=== PATIENT | female | born 1970 | race Caucasian/White ===

== ENCOUNTER 2016-07-18 05:55 | Day surgery (SDC) | payer OTHER ==
[~2016-07-18] VITALS: Ht 170.2 cm; Wt 75.0 kg
[2016-07-18] VITALS (27 sets, daily range): BP systolic 86–112; BP diastolic 41–73; PULSE 56–82; RESP 8–24; O2SAT 90–100
[2016-07-18] MEDS: Lactated Ringer's 1,000 ML IV SCH ×6 (05:00→14:33)
[~2016-07-18 05:55] MED LIST: BRIM30GE2 TP
[2016-07-18] MEDS ORDERED: Ondansetron 2 mg/mL 2 mL Inj ONE (05:56)
[2016-07-18] MEDS ORDERED: Neostigmine 1 mg/mL 5 mL Inj ONE (05:56)
[2016-07-18] MEDS ORDERED: Morphine PF 1 mg/mL 10 mL Inj ONE (05:56)
[2016-07-18] MEDS ORDERED: Dexamethasone 4 mg/mL Inj ONE (05:56)
[2016-07-18] MEDS ORDERED: Propofol 10,000 mCg/mL 20 mL Inj ONE (05:56)
[2016-07-18] MEDS ORDERED: Bupiv-Spinal 0.75%/Dex 8.25% 2 mL Inj ONE (05:56)
[2016-07-18] MEDS ORDERED: Glycopyrrolate 0.2 mg/mL 5 mL Inj ONE (05:56)
[2016-07-18] MEDS ORDERED: fentaNYL-PF 50 mCg/mL 2 mL Inj ONE (05:56)
[2016-07-18] MEDS ORDERED: Rocuronium 10 mg/mL 5 mL Inj ONE (05:56)
[2016-07-18] MEDS ORDERED: CeFAZolin Inj 2 GM in IV Premix 1 EACH IV ONE (06:00)
[2016-07-18] MEDS ORDERED: CeFAZolin 2 Gm/50 mL D5W Duplex Bag IV ONE (06:09)
[2016-07-18 06:36] LABS: BASOPHILS % (AUTO) 0.2 % (0-3); EOSINOPHILS % (AUTO) 0.3 % (0-5); MONOCYTES % (AUTO) 7.2 % (4-12); Mean Corpuscular Hemoglobin 32.3 pg (27.0-35.0); Mean Corpuscular Volume 96.2 fL (81-100); Platelet Count 258 bil/L (150-400)
[2016-07-18] MEDS ORDERED: Bupivacaine-MPF 0.25%/EPI 30 mL Inj INJ ONE (07:30)
[2016-07-18] MEDS ORDERED: Gentamicin 40 mg/mL 2 mL Inj IRRIGATION ONE (07:30)
[2016-07-18] MEDS ORDERED: Vasopressin 20 Unit/mL Inj IM ONE (07:30)
[2016-07-18] MEDS ORDERED: hydrOXYzine Inj 25 MG/1 mL SDV IM PRN (08:10)
[2016-07-18] MEDS ORDERED: Phenylephrine 10,000 mCg/mL Inj IVPUSH PRN (08:10)
[2016-07-18] MEDS ORDERED: Labetalol 5 mg/mL 4 mL Inj IV PRN (08:10)
[2016-07-18] MEDS ORDERED: EPHEDrine Sulfate 50 mg/mL Inj IM PRN (08:10)
[2016-07-18] MEDS ORDERED: fentaNYL-PF 50 mCg/mL 2 mL Inj IVPUSH PRN (08:10)
[2016-07-18] MEDS ORDERED: MetoCLOpramide 5 mg/mL 2 mL Inj IVPUSH PRN ×2 (08:10→08:15)
[2016-07-18] MEDS ORDERED: Atropine 0.4 mg/mL Inj IVPUSH PRN (08:10)
[2016-07-18] MEDS ORDERED: HYDROmorphone 1 mg/mL Inj IVPUSH PRN (08:10)
[2016-07-18] MEDS ORDERED: hydrALAZINE 20 mg/mL Inj IVPUSH PRN (08:10)
[2016-07-18] MEDS ORDERED: Lactated Ringer's 500 ML IV PRN (08:10)
[2016-07-18] MEDS ORDERED: Lactated Ringer's 1,000 ML IV SCH (08:10)
[2016-07-18] MEDS ORDERED: EPHEDrine Sulfate 50 mg/mL Inj IVPUSH PRN ×2 (08:10→08:15)
[2016-07-18] MEDS ORDERED: Ondansetron 2 mg/mL 2 mL Inj IVPUSH PRN ×3 (08:10→12:25)
--- NOTE | 2016-07-18 08:10 | PCM.HPANE ---
Patient Data Surgeon Admitting Provider: Attending Provider:Jeff Lucero MD Primary Care Physician:Shauna Resendiz MD Other Provider:Lonny Chamberlain Anesthesia Reason for Visit Pelvic Floor Relaxation Ht/WT & BMI Height (Feet): 5 Height (Inches): 7 Weight (Kilograms): 66.7 Body Mass Index 23.00 Allergies Coded Allergies: No Known Allergies (Verified Allergy, Unknown, 04/22/04) Past Anesthesia History Anesthesia History: Denies:: Abnormal Airway, Anesthesia Reactions (takes long time to wake up), Difficult Intubation, Fam Anesthesia Reaction Diabetes History Hx Diabetes?: No MRSA MRSA: No Medications Hypertension Medication: No Home Meds Incl Beta Ranjana: No Reported Medications Brimonidine Tartrate (Mirvaso)0.33 % Gel.w.pump30 Gm TP DAILY 07/16/16 History History of ENT Problems?: No HEENT History: Positive for:: Sinus Problem (taking flonase ) Denies:: Abnormal Airway Cataracts Difficult Intubation Dysphagia Glaucoma Hearing Problem TMJ Hx of Heart Problems?: No Cardiovascular History: Denies:: AICD Atrial Fibrillation Chest Pain Edema Heart Murmur Hypertension Irregular Heartbeat Pacemaker Peripheral Vascular Hx of Respiratory Problem?: No Respiratory History: Denies:: Asthma COPD Emphysema Oxygen Administration Pneumonia Tuberculosis Use of C-PAP Machine Use of Inhalers / NEBS Hx Neurologic Problems?: No Neurological History: Denies:: CVA Dementia Dizziness Headaches Multiple Sclerosis Parkinson's Disease Seizures TIA Hx of GI Problems?: No Gastrointestinal History: Denies:: Cirrhosis Gall Bladder Disease Gastroesphageal Reflux Gastrointestinal Bleeding Heartburn Hepatitis Hiatal Hernia Liver Disease Hx of Problems?: Yes Genitourinary History: Denies:: Kidney Stones Urinary Tract Infection Female Hx: Denies:: Currently Problems with Breasts? (breast implant hx ) Skin History: Denies:: History Skin Disorders? Pressure Ulcers Hx Musculoskeletal Problems?: Yes Musculoskeletal History: Positive for:: Back Injury (back pain related to uterine prolapse) Musculoskeletal Trauma (hx of right acl repair) Denies:: Fibromyalgia Joint Replacement Myasthenia Gravis Osteoarthritis Systemic Lupus Hx of Psycho/Social Problems?: No Psycho Social History: Denies:: Anxiety Hx Depression Hx Surgeries?: Yes (acl repair) Hx Any Other Health Problems?: Yes Other History: Positive for:: Cancer (BCC facial ) Denies:: Thyroid Disease History Blood Transfusions: Positive for:: Accept Blood Products? Denies:: Blood Transfusions Hx Diabetes: No Hx Alcohol Use: YesAlcoholic Drinks Per Day: 1-3 glasses weekHx Substance Use : NoHave You Smoked inLast 12 mo: No Stop/Bang S-Snoring: Do You Snore Loudly: No T-Tired: feel tired, fatigued: Yes O-Obsered: Observed not breath: No P-Blood Pressure: treated: No B- Body Mass Index > 35 kg/m2: No A- Age over 50: No N- Neck Large Circumference: No G- Gender Male: No WILLIAM Total Score: 1 WILLIAM Risk Assessment: Low Risk, <3 Yes Risk Assessment Category Category 1A: Patient has history of documented sleep apnea, and HAS NOT received any narcotic, sedative or anesthesia administration during this stay. Category 1B: Patient has history of documented sleep apnea, and HAS received any narcotic , sedative or anesthesia administration during this stay Category 2: Patient has SUSPECTED Obstructive Sleep Apnea, and HAS received any narcotic , sedative or anesthesia administration during this stay. Category 3: Patient has SUSPECTED Obstructive Sleep Apnea and HAS NOT received narcotic, sedative or anesthesia administration during this stay. Category 4: Outpatient in Procedural Areas with known sleep apnea or who screen positive for High Risk via the STOP/BANG questionnaire. Exam Exam Vital Signs Vital Signs Date Time Temp Pulse Resp B/P Pulse Ox O2 Delivery O2 Flow Rate FiO2 07/18/16 06:16 36.4 72 16 112/73 97 Room Air General Appearance: Alert, Oriented X3, Cooperative, No Acute Distress HEENT/AIRWAY: MP 1 Lungs: Clear to Auscultation, Normal Air Movement Heart: Exam Unremarkable, Regular Rate/Rhythm, No Murmurs/Rubs/Gallops Meds/Labs/Diagnostics Admission Meds Current Medications Lactated Ringer's (Lr) 1,000 ml @ 120 mls/hr Q8H20M IV Last administered on at 06:11; Start 07/18/16 at 05:00; Stop 07/18/16 at 13:19 Labs Test 07/18/16 06:25 White Blood Count 9.9th/mm3 (3.8-10.1) Red Blood Count 3.93mil/mm3 (3.90-5.20) Hemoglobin 12.7g/dL (12.0-15.6) Hematocrit 37.8% (35.0-46.0) Mean Corpuscular Volume 96.2fL (81-100) Mean Corpuscular Hemoglobin 32.3pg (27.0-35.0) Mean Corpuscular Hemoglobin Concent 33.6% (32.0-37.0) Red Cell Distribution Width 13.1% (12.3-15.4) Platelet Count 258bil/L (150-400) Neutrophils (%) (Auto) 76.0% (40-74) Lymphocytes (%) (Auto) 16.1% (14-46) Monocytes (%) (Auto) 7.2% (4-12) Eosinophils (%) (Auto) 0.3% (0-5) Basophils (%) (Auto) 0.2% (0-3) Sodium Level 137mEq/L (134-144) Potassium Level 4.3mEq/L (3.5-5.2) Chloride Level 100mEq/L (97-108) Carbon Dioxide Level 25mmol/L (18-29) Blood Urea Nitrogen 10mg/dL (6-24) Creatinine 0.61mg/dL (0.57-1.00) Estimat Glomerular Filtration Rate 151mL/min (>59) Glucose Level 82mg/dL (60-99) Calcium Level 9.0mg/dL (8.5-10.1) Plan Impression Patient chart reviewed, patient interviewed and anesthestic plan with risks, benefits, and alternatives discussed, and informed consent obtained. NPO Status: 07/17 ASA Physical Status: ASA1 Normal Healthy Anesthetic Plan: GA, SAB (IT Duramorph) Bene/Risks/Altern/Consents: Yes HP Complete Prior to Induction: Yes Tino Wong MD Jul 18, 2016 07:03
[2016-07-18] MEDS ORDERED: Estrogens Conjugated 30 Gm Vaginal Cream VAGINAL ONE (11:19)
[2016-07-18] MEDS ORDERED: Alum-Mag Hydrox-Simeth 30 mL Suspension PO PRN (12:25)
[2016-07-18] MEDS ORDERED: Acetaminophen IV 1,000 MG in IV Premix 1 EACH IV PRN (12:25)
[2016-07-18] MEDS ORDERED: Senna-Docusate 8.6-50 mg Tablet PO PRN (12:25)
[2016-07-18] MEDS ORDERED: Phenylephrine/NS-PF 100 mCg/mL 5 mL Syringe IVPUSH ONE (12:36)
--- NOTE | 2016-07-18 13:20 | PCM.ANEP1 ---
Post Anesthesia Phase 1 PACU Phase 1 Assessment Vital Signs Vital Signs Date Time Temp Pulse Resp B/P Pulse Ox O2 Delivery O2 Flow Rate FiO2 07/18/16 13:18 14 100 07/18/16 13:15 63 12 100/54 98 Nasal Cannula 2 07/18/16 13:10 59 13 97/53 90 Room Air 07/18/16 13:05 36.4 63 24 97/51 98 Room Air 07/18/16 13:00 58 19 93/56 98 Room Air 07/18/16 12:55 59 17 89/48 98 Room Air 07/18/16 12:53 59 18 95/52 98 Room Air 07/18/16 12:50 61 18 90/51 99 Room Air 07/18/16 12:45 60 17 100/48 99 Room Air 07/18/16 12:43 65 18 100/63 98 Room Air 07/18/16 12:40 62 20 87/50 99 Room Air 07/18/16 12:31 64 14 86/41 97 Room Air 07/18/16 12:25 12 97 07/18/16 12:25 65 15 94/46 99 Room Air 07/18/16 12:22 62 13 93/51 99 Nasal Cannula 2 07/18/16 12:15 68 12 92/49 99 Nasal Cannula 2 07/18/16 12:10 36.4 82 8 102/49 98 Nasal Cannula 4 07/18/16 06:16 36.4 72 16 112/73 97 Room Air Anesthetic Administered: GA, SAB Level of Alertness: Awake, talking DANIEL's with Equal Strength: Yes Pain: No Nausea or Vomiting: No Oxygen Delivery: Nasal Cannula Lungs: Clear to Auscultation, Normal Air Movement Dermatome Level: L3,4 (Patella) Tino Wong MD Jul 18, 2016 13:20
--- NOTE | 2016-07-18 13:24 | PCM.ANEP2 ---
Post Anesthesia Evaluation ASA/CMS Post Anesthesia VS in Patient's Normal Range?: Yes Resp Stable; Airway Patent?: Yes CV Function & Hydration Stable: Yes Mental Status Recovered?: Yes Pain control Satisfactory?: Yes N/V Control Satisfactory?: Yes Tino Wong MD Jul 18, 2016 13:24
--- NOTE | 2016-07-18 13:40 | OP ---
[address] [address] OPERATIVE REPORT PATIENT: SHAGGY NAVA : 1970 MR#: [id number] ADMIT: 07/18/2016 JOB ID: [id number] CORRECTED REPORT: DATE OF SURGERY: 07/18/2016 PROCEDURE: 1. Vaginal hysterectomy. 2. Anterior colporrhaphy. 3. Mid urethral transobturator sling placement. PREOPERATIVE DIAGNOSIS(ES): 1. Pelvic floor relaxation. 2. Uterine prolapse. 3. Stress urinary incontinence. 4. Cystocele. 5. Rectocele. POSTOPERATIVE DIAGNOSIS(ES): 1. Pelvic floor relaxation. 2. Uterine prolapse. 3. Stress urinary incontinence. 4. Cystocele. 5. Rectocele. SURGEON: Jeff Lucero MD. ASSEMBLYMAN OR WOMAN: Merline Belcher MD. ANESTHESIA: General with spinal. ESTIMATED BLOOD LOSS: 300 mL. ESTIMATED URINE OUTPUT: 100 mL. FLUIDS: 2000 mL of lactated Ringer. COMPLICATIONS: None. FINDINGS: Normal appearance of the cervix, and the uterus was normal in size. The patient had grade 2 uterine prolapse and grade 3 cystocele. She had grade 1-2 rectocele that was reduced after the vaginal cuff was suspended to the shortened uterosacral ligaments. The patient also was found to have a very small high relocated enterocele that was discovered intraoperatively. DESCRIPTION OF PROCEDURE: The patient was brought to the operating room, where she underwent spinal and general anesthesia without difficulty. The patient was placed in the dorsal lithotomy position using Nicolás stirrups. She was prepped and draped in usual surgical fashion. She received preoperative antibiotics. Ramiro Hugger was used to maintain adequate core body temperature. Time-out was performed verifying correct patient, correct procedure. The patient was examined under anesthesia with the findings mentioned above. She was placed in Trendelenburg position, weighted speculum was placed in the vagina, Brock speculum was placed anteriorly. The cervix was grasped with two tenacula. It was circumferentially injected with a solution of Pitressin. Twenty units of Pitressin were dissolved in 100 cc of normal saline. A total of 95 mL of this Pitressin vasopressin solution were used during the surgery. A long Jessica clamp was placed in the posterior cul-de-sac creating plication of the vaginal mucosa posteriorly close to the cervix. Using Sinclair scissors the posterior vaginal mucosa was incised and posterior cul-de-sac was entered. The posterior part of the vaginal mucosa was reapproximated with posterior peritoneum for better orientation and better hemostasis. Using Bovie, a circumferential incision was made around the cervix. With the Metzenbaum scissors the vaginal mucosa was dissected away from the cervix, and further dissection was provided anteriorly until the bladder was moved away from the lower part of the uterine segment and anterior part of the peritoneum was reached. Using smooth pickups, the plication was created over the anterior part of the cervix, and with Metzenbaum scissors the anterior part of the peritoneum was incised and anterior cul-de-sac was entered. The anterior part of the peritoneum was reapproximated with anterior part of the vaginal mucosa and a right angled retractor was placed between the bladder and the uterus lifting the bladder up it from the operative field. Posteriorly, the mid-sized weighted speculum was replaced with a long weighted speculum that was placed in the posterior cul-de-sac. With a Sarath clamp, the patient's uterosacral and cardinal ligaments bilaterally were clamped, then transected with the Sinclair scissors and suture ligated using 0 Vicryl. After that, left and right uterine arteries were clamped with Sarath clamps, transected with the Sinclair scissors, transfixed and suture ligated with 0 Vicryl. Good hemostasis was achieved. Following that, part of the broad ligament bilaterally was also clamped with the Sarath clamps, transected with Sinclair scissors, suture ligated with 0 Vicryl until the round ligaments, tubo-ovarian ligaments and fallopian tubes were reached. The round ligament, tubo-ovarian ligament, and fallopian tube bilaterally were clamped with Sarath clamps, transected with the Sinclair scissors, free tied with 0 Vicryl, then transfixed and suture ligated with a second 2-0 Vicryl suture. The specimen of uterus and cervix were removed and sent to Pathology. Good hemostasis was achieved from the pedicles bilaterally. The patient's transected uterosacral and cardinal ligaments were tagged during the procedure. Using 0 Prolene suture, the distal portion of each uterosacral ligament was grasped, and the vaginal cuff was suspended bilaterally to uterosacral ligaments. A circumferential running, locking 0 Vicryl suture was placed to reapproximate the peritoneum with vaginal mucosa anteriorly and posteriorly on both sides. After that, the vaginal cuff was closed with 0 Vicryl. Cystocele repair was done. A solution of Pitressin with normal saline was injected over the cystocele for hydrodissection and using scalpel, a sagittal incision was made. Allis clamps were applied on both sides of the incision. With Metzenbaum scissors, the vaginal mucosa was on both sides from pubovesical fascia. It was trimmed and excessive vaginal mucosa was removed. Using a series of interrupted 2-0 Vicryl sutures, plications were done in two layers plicating the stronger part of uterovesical fascia and reducing the cystocele. The vaginal mucosa overlying the area of the incision was reapproximated with 2-0 Vicryl in a running, locking fashion. Transobturator mid urethral sling was placed. The Pitressin solution was injected in the area of the mid urethra. Bilateral dissection was done with the Metzenbaum scissors to the level of the pubic ramus. Entry points were marked on both sides of the thigh at the level of the clitoris and 1 cm inferior and laterally from the insertion of the anterior adductor longus muscle. Using scalpel, the skin incisions were marked at the level of the clitoris bilaterally. Using Aashish TOT tape, mid urethral sling was placed. The Aashish needles were passed from the outside in towards the mid urethra perforating the obturator foramen. The tape was attached to both of the insertion needles on both sides and with a backward motion, the tape was placed tension free in the area of the mid urethra. FloSeal solution was injected on both sides of the dissection to create better hemostasis. The vaginal mucosa was reapproximated with 2-0 Vicryl in a running, locking fashion. Cystoscopy was performed verifying the patency of the ureters bilaterally, both ureteral jets were seen. The vaginal mucosa looked normal. The cystoscope was removed, and Ly catheter was replaced. The Aashish TOT tape was trimmed on both sides at the level of the skin where insertions were made. The skin was reapproximated with 4-0 Vicryl two interrupted sutures. A vaginal packing with Premarin cream was placed. The patient was repositioned back into the supine position. She tolerated the procedure well and was transferred to the recovery room in stable condition. ADDITIONAL INFORMATION: Assistance of Dr. Belcher was necessary during this surgery for proper exposure, visualization of anatomy, handling of the tissue, and help with placement of mid urethral sling. Addenda added by MICHEL 11/12/16 at 8:14am
[2016-07-18] MEDS ORDERED: Lactated Ringer's 1,000 ML IV ONE (14:09)
--- NOTE | 2016-07-18 17:58 | NUR ---
Arrival on [facility] Pt transferred to [facility]SC from PACU at 1420. Pt drowsy but oriented x 3. PIV asymptomatic and intact. VSS. Ly in place and draining dark green urine. No drainage noted on peripad dressing. Pt has full sensation down to her feet. Spouse at bedside. Called community engagement coordinator to request pt's personal belongings from [facility].
[2016-07-18] MEDS: oxyCODONE-Acetamin 5-325 mg Tablet PO PRN ×2 (18:14→21:11)
[2016-07-18] MEDS: Senna-Docusate 8.6-50 mg Tablet PO SCH (21:12)
[2016-07-19 00:01] VITALS: BP 109/59; PULSE 60; RESP 18; O2SAT 97
[2016-07-19] MEDS: Lactated Ringer's 1,000 ML IV SCH ×4 (00:03→20:22)
[2016-07-19] MEDS: oxyCODONE-Acetamin 5-325 mg Tablet PO PRN ×4 (04:47→21:05)
[2016-07-19 05:07] VITALS: BP 100/61; PULSE 79; RESP 18; O2SAT 100
--- NOTE | 2016-07-19 06:39 | NUR ---
Pain Pt rated abdominal pain at 2-5/10. Percocet and Ibuprofen given x2 each, pt reports appropriate pain relief. No overt vaginal bleeding noted. Pt OOB in early AM, feels slightly light headed and week.
--- NOTE | 2016-07-19 08:24 | PCM.DIGYN ---
Surgical Discharge Instruction Dates of Hospitalization Date of Hospital Admission Providers Admitting Physician: Primary Care Physician: Shauna Resendiz MD Attending Physician: Jeff Lucero MD Diagnosis at Time of Discharge Diagnosis at time of discharge Uterine prolapse Problems: Diet Discharge Diet: No restrictions Activity Discharge Activity-General: Try not to overdue, Be up and about, Balance rest and activity, No lifting >10 pounds for 4-6 weeks, No driving while taking narcotic Dressing and Incisional Care Hygiene: May shower, NO bathtub, hot tub or whirlpool Additional Instructions Discharge Instructions You have had an uncomplicated vaginal hysterectomy, bladder wall repair and sling placement. Please call if you begin experiencing severe pain, temperature greater than 100.5 degrees, heavy vaginal bleeding filling more than 1 pad per hour or malodorous vaginal discharge. Follow Up Plan Follow-up Provider (F9): Jeff Lucero MD Follow-up appointment: Weeks (2) Call your provider for: Fever, Chills, Shortness of breath, Vomitting, Heavy vaginal bleeding, Increasing pain Merline Belcher MD Jul 19, 2016 08:24
[2016-07-19] MEDS: Senna-Docusate 8.6-50 mg Tablet PO SCH ×2 (08:32→20:06)
[2016-07-19 08:57] LABS: BASOPHILS % (AUTO) 0.1 % (0-3); EOSINOPHILS % (AUTO) 0.1 % (0-5); MONOCYTES % (AUTO) 8.2 % (4-12); Mean Corpuscular Hemoglobin 32.2 pg (27.0-35.0); NEUTROPHILS % (AUTO) 79.2 % (40-74); Platelet Count 199 bil/L (150-400)
--- NOTE | 2016-07-19 09:08 | PROG NOTE ---
[address] [address] PROGRESS NOTE PATIENT: SHAGGY NAVA : 1970 MR#: [id number] ADMIT: 07/18/2016 JOB ID: [id number] DATE: 07/19/2016 ADMISSION DIAGNOSIS: Uterine prolapse. DISCHARGE DIAGNOSIS: Uterine prolapse. PROCEDURES PERFORMED: Total vaginal hysterectomy with anterior colporrhaphy and transobturator sling placement. REASON FOR ADMISSION: This 46-year-old female presented to the hospital on July 18, 2016 to undergo a total vaginal hysterectomy with cystocele repair and sling placement due to symptomatic uterine prolapse as well as urinary incontinence. She had been seeing Dr. Lucero in clinic and had discussed this with him. After consultation in the clinic today, this surgical approach is opted and the patient was admitted on the to undergo the above-stated procedure. HOSPITAL COURSE: The patient was admitted on the to undergo the planned surgical procedure. The surgery was uncomplicated and she was admitted for an overnight stay. On the evening of hospital day #1, postop day #0, she did complain of some right arm numbness following the procedure, which slowly improved on its own and by postoperative day #1 she was still complaining of some arm numbness but no weakness. Her pain was overall well controlled. She was tolerating a regular diet without any nausea or vomiting and she was ambulating without difficulty. Her vaginal packing was removed and plans were made to remove the Ly catheter on the same day and await spontaneous voiding. We discussed with the patient that if she was unable to void she may go home with a Ly catheter which she understood. PHYSICAL EXAMINATION: The day of discharge, vitals, her temperature is 36.8, pulse is 79, respiratory rate is 18, blood pressure is 100/61. General: She is awake, alert, oriented, no acute distress. Comfortable in bed. Heart has regular rate and rhythm. Her abdomen is soft. It is appropriately tender. There is a minimal amount of distention present. Her vaginal packing was removed and there was noted to be a small amount of bleeding on the packing. There was minimal labial edema and her incisions appeared to be healing well. Her extremities had SCDs in place and no tenderness or edema. She had a Ly catheter with clear yellow urine and her urine output was adequate overnight. She had a CBC pending at the time of this note but we will followup on this. Preop hemoglobin was 12.7 and white count was 9.9. PLAN AT DISCHARGE: The patient was advised to remain on pelvic rest for six weeks including no tampons or intercourse she was asked to call if any signs or symptoms of infection including fever greater than 100.5 degrees, severe pain or malodorous vaginal discharge. MEDICATIONS AT DISCHARGE: Included: 1. Percocet 5/325 1-2 tabs p.o. q.4 hours p.r.n. pain, #40. 2. Ibuprofen 800 mg p.o. q.8 hours p.r.n. pain, #60. 3. Colace 100 mg p.o. b.i.d. The Ly catheter was to be removed later this morning and she will ideally go home without this when she passes a void trial. However, if she is unable to void on her own, she may need catheter replacement at which point she would return to our clinic in four days for a trial of void at that point. Her CBC for the morning is currently pending, but this will be followed up on to ensure stable prior to discharge. All questions and concerns of the patient were answered and she was deemed stable for discharge on postoperative day #1. She will notify us if her arm numbness worsens or she develops weakness, may need follow up with neurology in the future if resolution does not occur spontaneously. JOSEE
[2016-07-19 09:28] VITALS: PULSE 76
--- NOTE | 2016-07-19 11:19 | NUR ---
Ly catheter removed / voiding Ly cath removed at 0915 hrs. Asked pt to try to void at 1100. Pt was able to void a small amount: only approximately 10mL of urine went into the measuring hat, but some urine was noted in the toilet bowl. Post void bladder scan showed residual urine of 747 mL. Pt wanted to ambulate and then try to urinate more later. Will continue to monitor and due post void residual scan again before placing a new Ly catheter.
--- NOTE | 2016-07-19 12:29 | NUR ---
Social Work Note: Screen Note/ Discharge Data& Assessment: EMR reviewed. Per pt is medically ready to discharge home via POV. Brooke Jasso is a 46 year old female here for pelvic floor relaxation. Per pt is medically improved and ready to discharge. Pt has [employer] [facility] and sees Shauna Resendiz MD for primary care. Pt lives in [place] with spouse and is independent at baseline. Pt confirmed her will be provided transportation home. Pt denies any unmet needs. No other discharge needs identified. Plan: Per pt is medically ready to discharge home via POV. Pt confirmed her will be provided transportation home. Pt denies any unmet needs. No other discharge needs identified. LISA Noble
--- NOTE | 2016-07-19 15:54 | NUR ---
Post void residual Post op Ly catheter was removed at 0915. Pt was able to void multiple times throughout the day, but this became increasingly more difficult in the p.m. and was causing pt more pain and discomfort. Pt attempted to void at approximately 1500 but was unable to. SOLAR ENGINEER did bladder scan which showed more than 600 mL. Ly catheter was reinserted at 1545 without incident. Pt will be discharged to home with the Ly in place per physician's orders.
[2016-07-19 16:13] VITALS: BP 116/72; PULSE 69; RESP 18; O2SAT 99
--- NOTE | 2016-07-19 16:45 | NUR ---
Pain Pt c/o increasing pelvic pain that is 9/10, and she is anxious about being discharged with this amount of pain. Paged CORPORATE BANKING OFFICER hospitalist and asked if pt could stay another night. Dr Mccormack returned page and said it was okay for pt to stay here tonight. She said she would come and see the pt as soon as she could.
[2016-07-19] MEDS ORDERED: HYDROmorphone 1 mg/mL Inj IVPUSH PRN (18:20)
[2016-07-19 19:01] VITALS: BP 159/79; PULSE 79; RESP 22; O2SAT 100
--- NOTE | 2016-07-19 19:07 | NUR ---
Dyspnea At 1845 pt received 1 mg IVP Dilaudid for pain. At 1900 pt c/o feeling that she could not breath. Pt has nasal congestion. Oxygen administered via nasal cannula and VS were taken. BP was 159/79, HR 79, RR 22, oxygen saturation was 100%. Pt was anxious and tearful. Calmed pt by instructing her to take deep breaths and to slow down her breathing. At 1915 pt reported she was feeling better and did not feel she was having any trouble breathing other than that due to nasal congestion. Will pass this information onto the NOC RN
[2016-07-19 20:53] VITALS: BP 124/70; PULSE 76; RESP 18; O2SAT 98
--- NOTE | 2016-07-19 23:15 | NUR ---
Pain pt reports abdominal pain at 6-01/26. Ibuprofen and Percocet given, care transferred to Ashley Head RN at around 2200.
[2016-07-20 01:35] VITALS: BP 121/73; PULSE 79; RESP 18; O2SAT 97
[2016-07-20 03:27] LABS: Mean Corpuscular Hemoglobin 31.7 pg (27.0-35.0); Mean Corpuscular Volume 98.5 fL (81-100)
--- NOTE | 2016-07-20 04:02 | NUR ---
pain: pt, responded very well to iv tordol, sleeping states "pain is much better".
[2016-07-20] MEDS: Lactated Ringer's 1,000 ML IV SCH (04:22)
[2016-07-20] MEDS: oxyCODONE-Acetamin 5-325 mg Tablet PO PRN ×2 (04:26→11:17)
--- NOTE | 2016-07-20 05:37 | NUR ---
pain: pt. still having 03/29 pain after 2 percocets were given. Addendum: 07/20/16 at 0557 by VITOR COCHRAN RN pt. also became nauseas, zofran and crackers given.
[2016-07-20 06:38] VITALS: BP 124/76; PULSE 80; RESP 20; O2SAT 97
[2016-07-20] MEDS: Senna-Docusate 8.6-50 mg Tablet PO SCH (10:10)
--- NOTE | 2016-07-20 13:40 | NUR ---
Discharge note- Ly catheter dc'd this am. Patient encouraged to drink fluids. patient complained of abd. cramping after voiding small amt. of urine. Bladder scanned and showed 398 cc residual. Percocet 2 tabs given and patient was able to void clear yellow urine. Rescanned bladder and shows 98cc. MD notified that patient able to empty bladder and pain controlled with ordered pain med. Discharged to home with and private belongings.
--- NOTE | 2016-07-20 16:58 | DIS ---
[address] [address] DISCHARGE SUMMARY PATIENT: SHAGGY NAVA : 1970 MR#: [id number] ADMIT: 07/18/2016 JOB ID: [id number] DIS: 07/20/2016 ADMISSION DIAGNOSIS: Uterine prolapse. DISCHARGE DIAGNOSIS: Uterine prolapse. PROCEDURE PERFORMED: Total vaginal hysterectomy with anterior colporrhaphy and transobturator sling placement. REASON FOR ADMISSION: This 46-year-old female presented to the hospital on July 18, 2016, to undergo a total vaginal hysterectomy with cystocele repair and sling placement and possible posterior repair due to symptomatic uterine prolapse, as well as urinary incontinence. She had been seeing Dr. Lucero here in clinic. This had been discussed with him previously, and the patient had opted to undergo this treatment plan. She presented on July 18 for the same. HOSPITAL COURSE: The patient was admitted on July 18 to undergo the planned surgical procedure. Surgery was uncomplicated and she was admitted for an overnight stay. On postoperative day #zero, following surgery, she did have some right arm numbness but no arm weakness. By postoperative day #1, her numbness was improving and she continued to complain of no weakness at all. The morning of postoperative day #1, her pain was well controlled. She was tolerating a regular diet, without any nausea, vomiting, and she was ambulating without any difficulty. Her vaginal packing was removed on postoperative day #1. Her Ly catheter was removed that morning as well. Throughout the day, she was monitored. She was not able to void well on her own and she was noted to have incomplete emptying, so a Ly catheter was replaced. She was still planning to go home on postoperative day #1. However, in the afternoon to evening, she began having increasing abdominal pain, which she described as constant cramping. Because of this, she was given IV Dilaudid and morphine and decision was made to keep the patient a second day. By postoperative day #2, her pain was significantly improved and she was passing flatus, which she felt had contributed to improving her pain. She was ambulating and again her Ly catheter was removed for a 2nd void trial on postoperative day #2.. By the afternoon of postoperative day #2 she was voiding without difficulty and had a post void residual <100cc. She was deemed stable for discharge at this time. Laboratory data following her surgery preoperatively, hemoglobin was 12.7. By postoperative day #1, it had dropped down to 9.5, and by postop #2, it had decreased again to 8.6 but was thought to be stable over a 24-hour time period. Additionally, the patient was not symptomatic for anemia and did not have any signs of acute ongoing bleeding. Her white count which initially had increased following surgery to 16.7, was also trending down by postoperative day #2 down to 11.3. PHYSICAL EXAMINATION: The day of discharge, her temperature is 36.6, pulse is 80, respiratory rate is 20, blood pressure is 124/76, and she is satting 97% on room air. In general, she is awake, alert, oriented, in no acute distress. Her abdomen was soft, minimally appropriately tender and minimally distended. She had minimal vaginal bleeding and her extremities show no tenderness or edema. INSTRUCTIONS AT DISCHARGE: Patient was advised to remain on pelvic rest for six weeks including no tampons, douching, or intercourse. She was asked to call with any signs or symptoms of infection including fever greater than 100.5 degrees, severe pain, or malodorous vaginal discharge. Additionally, she was asked to call for any signs or symptoms of acute anemia including dizziness, chest pain, palpitations, or shortness of breath. MEDICATIONS AT DISCHARGE: Included: 1. Percocet 5/325, 1-2 tabs p.o. q.4 h. p.r.n. pain, #40. 2. Ibuprofen 800 mg p.o. q.8 h. p.r.n. pain, #16. 3. Colace 100 mg p.o. b.i.d. 4. She was also encouraged to take ferrous sulfate 325 mg p.o. b.i.d. to help with her anemia. All questions and concerns of the patient were answered prior to discharge. She was be discharged home on postoperative day #2. JOSEE
--- NOTE | 2016-07-22 13:38 | PATH ---
SURGICAL PATHOLOGY Attending Physician:Jeff Lucero MD CASE STATUS: Signed Out PATIENT NAME: SHAGGY NAVA PID: [id number] : 1970 DATE COLLECTED:07/18/2016 19:18 SPECIMEN: Uterus +/- tubes/ovaries, except neoplastic, prolapse CLINICAL HISTORY: UTERUS AND CERVIX OUT 908 /F 910 FINAL DIAGNOSIS: UTERUS AND CERVIX, SIMPLE HYSTERECTOMY: UTERUS AND CERVIX WITH NO EVIDENCE OF NEOPLASIA. SECRETORY ENDOMETRIUM WITH NO EVIDENCE OF NEOPLASIA OR HYPERPLASIA. ICD10 CODE N81.2 GROSS DESCRIPTION: Received in formalin labeled "uterus and cervix". The specimen consists of 158 grams total abdominal hysterectomy measuring 10 cm superior to inferior 6.0 cm lateral to lateral and 5.0 cm anterior to posterior. Cervix measures 4.5 x 4.5 and it has hemorrhagic iniguez mucosa and irregular os measuring 2.0 cm. Endocervix measures 3.0 cm in length and it has herringbone mucosal surface. The endometrial cavity measuring 2.8 cm corner to corner by 5.0 cm in length and it has endometrial lining that measures 0.4 to 0.5 cm in thickness. The myometrium measures 2.5 cm in maximum thickness. Serosal surface is red-iniguez smooth and glistening. Block Out Machine Operator sections submitted as follows: Cassette A anterior cervix, cassette B anterior lower uterine segment, C anterior uterine wall full-thickness including endometrium, myometrium and serosal surface, D anterior uterine wall full-thickness including endometrium, myometrium and serosal surface, E anterior uterine wall full-thickness including endometrium, myometrium and serosal surface, F posterior cervix, cassette G posterior lower uterine segment, H posterior uterine wall full-thickness including endometrium, myometrium and serosal surface, I posterior uterine wall full-thickness including endometrium, myometrium and serosal surface, J posterior uterine wall full-thickness including endometrium, myometrium and serosal surface. ([id number]) MICRO DESCRIPTION: See diagnosis. ICD-9 CODES: CPT CODES: 61208 Electronically Signed Out Luma Bravo MD [facility] Pathology [facility] [address], [place] [address] Technical component performed at [facility], [facility] [address], [address]
== END 2016-07-20 13:24 | disposition home or self-care (01) ==
LOC: SAS 05:55 → OSC 14:17 → SAS 07-20 13:24
PROVIDERS: ATTEND Legal Medicine
DX: N81.89 Other female genital prolapse (principal); N81.2 Incomplete uterovaginal prolapse; N39.3 Stress incontinence (female) (male)
CPT/HCPCS: 36415; 57260; 57288; 58260; 80048; 85025; C1771; J0131; J0690; J1100; J1170; J1200; J1580; J2250; J2274; J2370; J2405; J2710; J2765; J7120